=== PATIENT | male | born 2000 | race Caucasian/White ===

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

== ENCOUNTER 2023-11-20 20:53 | Emergency (ER) | payer BC, MEDICAID ==
[2023-11-20] MEDS: Lidocaine/Epineph/Tetracaine 3 ML Syringe TOP ONE (21:52)
[2023-11-20] MEDS: Cephalexin 500 MG Cap PO ONE (23:27)
== END 2023-11-20 23:30 | disposition home or self-care (01) ==
LOC: FB.ED 20:53
DX: S91.311A Laceration without foreign body, right foot, initial encounter (principal); W25.XXXA Contact with sharp glass, initial encounter
CPT/HCPCS: 12002; 73630-RT; 99283; A9270-GY